=== PATIENT | male | born 1965 | race Caucasian/White ===

== ENCOUNTER 2021-11-08 18:00 | Inpatient (IN) | payer MEDICAID ==
[~2021-11-08] VITALS: Ht 175.3 cm; Wt 116.8 kg
[~2021-11-08 18:00] MED LIST: ALBU8.5H17 IH; ASPI-1265 PO; GEMF600T89 PO; HYDR-4383 PO; LISI20TA28 PO; LOVA20TA2 PO; METH4TAB3 PO; METO50TA17 PO; OMEP20CA15 PO
[2021-11-08] MEDS ORDERED: ibuprofen tablet 400 MG TABLET PO ONE (19:40)
[2021-11-08 19:51] LABS: BASOPHILS # (AUTO) 0.1 X10'3 (0-0.2); BASOPHILS % (AUTO) 0.3 % (0-1); EOSINOPHILS % (AUTO) 0 % (0-6); HEMATOCRIT 49.7 % (42.0-52.0); HEMOGLOBIN 17.1 g/dl (14.0-17.9); MEAN CORPUSCULAR HEMOGLOBIN 30.7 PG (27.0-31.0); MEAN CORPUSCULAR HGB CONC 34.3 g/dL (33.0-36.5); MEAN CORPUSCULAR VOLUME 89.6 FL (78-98); MEAN PLATELET VOLUME 9.5 FL (7.4-10.4); MONOCYTES # (AUTO) 1.2 X10'3 (0-0.9); MONOCYTES % (AUTO) 6.7 % (2-12); NEUTROPHILS # (AUTO) 15.2 X10'3 (1.8-7.7); PLATELET COUNT 206 X10'3 (140-440); RED BLOOD COUNT 5.55 X10'6 (4.70-6.10); RED CELL DISTRIBUTION WIDTH 13.6 % (11.5-14.5); WHITE BLOOD COUNT 17.5 X10'3 (4.5-11.0)
[2021-11-08 20:05] LABS: ALANINE AMINOTRANSFERASE 23 U/L (12-78); ALBUMIN 3.7 G/DL (3.4-5.0); ALBUMIN/GLOBULIN RATIO 0.8 (1.1-1.5); ALKALINE PHOSPHATASE 64 IU/L (46-116); ANION GAP 12 (8-16); ASPARTATE AMINO TRANSFERASE 16 U/L (10-37); BLOOD UREA NITROGEN 15 MG/DL (7-18); BUN/CREATININE RATIO 13.5 (5.4-32.0); CALCIUM 9.2 MG/DL (8.5-10.1); CHLORIDE 97 MMOL/L (99-107); CREATININE 1.11 MG/DL (0.60-1.10); GLUCOSE 96 MG/DL (70-104); POTASSIUM 4.2 MMOL/L (3.5-5.1); SODIUM 133 MMOL/L (135-145); TOTAL CARBON DIOXIDE 24.5 MMOL/L (24-32); TOTAL PROTEIN 8.4 G/DL (6.4-8.2); eGFR 68 ML/MIN
[2021-11-08 22:14] LABS: CLARITY,URINE CLEAR (Clear); COLOR,URINE YELLOW (Yellow); GLUCOSE, URINE NEGATIVE (Neg); KETONES,URINE 15 mg/dl (Neg); LEUKOCYTE ESTERASE ,URINE NEGATIVE (Neg); NITRITES, URINE NEGATIVE (Neg); OCCULT BLOOD,URINE TRACE-INTACT (Neg); PROTEIN,URINE TRACE mg/dl (Neg)
[2021-11-08 22:20] LABS: UA COLLECTION TYPE CLN CATCH MIDSTREAM
[2021-11-08] MEDS ORDERED: normal saline 1000ml 1,000 ML IV ONE (22:20)
[2021-11-08 22:21] LABS: BACTERIA,URINE FEW /HPF (Neg); RBC,URINE 0-2 /HPF (0-2); SQUAMOUS EPITHELIAL CELL,UR FEW /LPF (FEW); WBC,URINE NONE SEEN /HPF (0-4)
[2021-11-08] MEDS ORDERED: morphine 4 MG/ML inj SYRINge IV ONE (22:55)
[2021-11-08] MEDS ORDERED: ondansetron/PF 4mg/2ml inj IV ONE (22:55)
[2021-11-08] MEDS ORDERED: piperacillin/tazo 3.375gm/50ml 50 ML IV ONE (22:55)
[2021-11-09] MEDS ORDERED: bisacodyl 10mg suppository rectal RC PRN (01:00)
[2021-11-09] MEDS ORDERED: magnesium hydroxide 30ml (MOM) UD suspension PO PRN (01:00)
[2021-11-09] MEDS ORDERED: diphenhydrAMINE 25mg capsule PO PRN (01:00)
[2021-11-09] MEDS ORDERED: ondansetron 4mg rapidly disintigrating tab PO PRN (01:00)
[2021-11-09] MEDS ORDERED: acetaminophen 325mg tablet PO PRN ×2 (01:00)
[2021-11-09] MEDS ORDERED: ipratropium/albuterol 3ml nebule NEB PRN (01:00)
[2021-11-09] MEDS ORDERED: diphenhydrAMINE 50 mg/ml inj IV PRN (01:00)
[2021-11-09] MEDS ORDERED: HYDROcodone/acetaminophen 5mg/325mg tablet PO PRN (01:00)
[2021-11-09] MEDS ORDERED: HYDROcodone/acetaminophen 10/325mg tab PO PRN (01:00)
[2021-11-09] MEDS ORDERED: ondansetron/PF 4mg/2ml inj IV PRN (01:00)
[2021-11-09] MEDS ORDERED: morphine 2 MG/ML inj. syringe IV PRN ×2 (01:00)
[2021-11-09] MEDS ORDERED: acetaminophen 650mg rectal suppository RC PRN (01:00)
[2021-11-09] MEDS ORDERED: HYDROmorphone inj. 0.5 MG/0.5 ML DISP.SYRIN IV PRN (01:00)
[2021-11-09] MEDS ORDERED: mag hydrox/Alum hydrox/simeth 30ml oral suspension PO PRN (01:00)
[2021-11-09 01:33] LABS: CREATINE KINASE 460 U/L (39-308); LIPASE < 50 U/L (73-393); MAGNESIUM 2.3 MG/DL (1.5-2.4); PHOSPHORUS 2.7 MG/DL (2.3-4.5)
[2021-11-09 01:43] LABS: HEMOGLOBIN A1C 5.5 % (4.5-6.2)
[2021-11-09 01:51] LABS: APTT 34 SECONDS (22-32)
[2021-11-09] MEDS: normal saline 1000ml 1,000 ML IV SCH ×3 (02:54→21:00)
--- NOTE | 2021-11-09 03:02 | NUR ---
PT HAS BEEN UP TO THE RESTROOM TWICE SINCE BEING MOVED TO ER BED 15 AT APPROX 2300
--- NOTE | 2021-11-09 05:46 | NUR ---
RN ASSUMED CARE OF PATIENT. PT MOVED FROM BED 15 TO BED 11
[2021-11-09 06:37] LABS: URINE AMPHETAMINE SCREEN NEGATIVE (Neg); URINE BARBITUATE SCREEN NEGATIVE (Neg); URINE BENZODIAZEPINES SCREEN NEGATIVE (Neg); URINE CANNABINOID SCREEN NEGATIVE (Neg); URINE COCAINE SCREEN NEGATIVE (Neg); URINE METHADONE SCREEN NEGATIVE (Neg); URINE OPIATE SCREEN NEGATIVE (Neg); URINE PHENCYCLIDINE SCREEN NEGATIVE (Neg)
[2021-11-09 08:00] LABS: BASOPHILS % (AUTO) 0.2 % (0-1); EOSINOPHILS % (AUTO) 0 % (0-6); HEMOGLOBIN 17.3 g/dl (14.0-17.9); LYMPHOCYTES # (AUTO) 0.8 X10'3 (1.1-4.8); LYMPHOCYTES % (AUTO) 5.3 % (21-51); MEAN CORPUSCULAR HEMOGLOBIN 30.9 PG (27.0-31.0); MEAN CORPUSCULAR HGB CONC 33.9 g/dL (33.0-36.5); MEAN CORPUSCULAR VOLUME 91.2 FL (78-98); MEAN PLATELET VOLUME 10.6 FL (7.4-10.4); MONOCYTES % (AUTO) 6.5 % (2-12); NEUTROPHILS # (AUTO) 13.3 X10'3 (1.8-7.7); PLATELET COUNT 203 X10'3 (140-440); RED BLOOD COUNT 5.59 X10'6 (4.70-6.10); WHITE BLOOD COUNT 15.2 X10'3 (4.5-11.0)
[2021-11-09] MEDS ORDERED: methylPREDNISolone sod succ 125mg/2ml vial IV SCH (08:00)
[2021-11-09] MEDS ORDERED: CefTRIAXone/D5W-Rocephin 1gm 50 ML IV SCH (08:00)
[2021-11-09] MEDS ORDERED: azithromycin 250mg tablet PO SCH (08:00)
[2021-11-09 08:09] LABS: ALANINE AMINOTRANSFERASE 23 U/L (12-78); ALBUMIN 3.5 G/DL (3.4-5.0); ALBUMIN/GLOBULIN RATIO 0.7 (1.1-1.5); ALKALINE PHOSPHATASE 63 IU/L (46-116); ANION GAP 12 (8-16); ASPARTATE AMINO TRANSFERASE 21 U/L (10-37); BLOOD UREA NITROGEN 15 MG/DL (7-18); BUN/CREATININE RATIO 15.2 (5.4-32.0); CALCIUM 9.3 MG/DL (8.5-10.1); CHLORIDE 99 MMOL/L (99-107); CREATININE 0.99 MG/DL (0.60-1.10); GLUCOSE 91 MG/DL (70-104); POTASSIUM 3.8 MMOL/L (3.5-5.1); SODIUM 133 MMOL/L (135-145); TOTAL CARBON DIOXIDE 21.8 MMOL/L (24-32); TOTAL PROTEIN 8.4 G/DL (6.4-8.2); eGFR 78 ML/MIN
[2021-11-09] MEDS: metoprolol tartrate 50mg tablet PO SCH ×2 (08:43→19:47)
[2021-11-09] MEDS: docusate sod 100mg capsule PO SCH ×2 (08:43→19:47)
[2021-11-09] MEDS: heparin, porcine 5000 units/ml vial SQ SCH ×2 (09:00→19:45)
[2021-11-09] MEDS: piperacillin/tazo 4.5gm/100ml 100 ML IV SCH ×2 (09:15→16:01)
--- NOTE | 2021-11-09 10:15 | NUR ---
Report given to YASMIN Jacobson RN will be coming to ER to take pt to PAS unit.
[2021-11-09 10:45] VITALS: BP 160/95
--- NOTE | 2021-11-09 10:45 | NUR ---
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 TOOK A SET OF VITALS. CHECKED HIS EMAR FOR MEDS DUE, AND ORDERED HIM A TRAY. PATIENT STABLE AND RESTING.
[2021-11-09] MEDS ORDERED: AMLO-708 PO (13:07)
[2021-11-09] MEDS ORDERED: VALS320T17 PO (13:07)
[2021-11-09] MEDS ORDERED: HYDR12.55 PO (13:08)
--- NOTE | 2021-11-09 13:09 | NUR ---
REVIEWED MED REC WITH PATIENT. POOR HISTORIAN. VAGUE ON THE LAST DATES FOR HIS MEDICATION.
[2021-11-09 13:40] VITALS: BP 151/76
--- NOTE | 2021-11-09 13:40 | NUR ---
Assumed care of pt. Pt awake and alert. VSS. Pt denied any discomfort except for ROBERTS. Call light in reach.
[2021-11-09] MEDS ORDERED: LISI40TA13 PO (16:43)
[2021-11-09] MEDS ORDERED: ASPI-611 PO (16:43)
[2021-11-09 18:00] VITALS: BP 131/73
--- NOTE | 2021-11-09 18:40 | NUR ---
Patient in room ORTHO 4012. I have received report from PAULA HOFFMAN and had the opportunity to ask questions and assume patient care.
[2021-11-09] MEDS: methylPREDNISolone sod succ 125mg/2ml vial IV SCH (19:44)
[2021-11-09] MEDS ORDERED: temazepam 15mg capsule PO PRN (21:00)
[2021-11-09 22:00] VITALS: BP 153/89
[2021-11-10] MEDS: piperacillin/tazo 4.5gm/100ml 100 ML IV SCH ×2 (00:47→07:51)
[2021-11-10] MEDS: normal saline 1000ml 1,000 ML IV SCH (04:56)
[2021-11-10 05:56] LABS: BASOPHILS % (AUTO) 0.1 % (0-1); EOSINOPHILS % (AUTO) 0 % (0-6); HEMATOCRIT 45.1 % (42.0-52.0); LYMPHOCYTES # (AUTO) 0.7 X10'3 (1.1-4.8); LYMPHOCYTES % (AUTO) 3.8 % (21-51); MEAN CORPUSCULAR HGB CONC 33.3 g/dL (33.0-36.5); MEAN CORPUSCULAR VOLUME 90.1 FL (78-98); MEAN PLATELET VOLUME 10.1 FL (7.4-10.4); MONOCYTES # (AUTO) 0.7 X10'3 (0-0.9); MONOCYTES % (AUTO) 3.8 % (2-12); NEUTROPHILS # (AUTO) 15.8 X10'3 (1.8-7.7); NEUTROPHILS % (AUTO) 92.3 % (42-75); PLATELET COUNT 198 X10'3 (140-440); RED BLOOD COUNT 5.01 X10'6 (4.70-6.10); RED CELL DISTRIBUTION WIDTH 13.6 % (11.5-14.5); WHITE BLOOD COUNT 17.1 X10'3 (4.5-11.0)
[2021-11-10 06:00] VITALS: BP 150/91
[2021-11-10 06:19] LABS: ALANINE AMINOTRANSFERASE 21 U/L (12-78); ALBUMIN 2.6 G/DL (3.4-5.0); ALBUMIN/GLOBULIN RATIO 0.6 (1.1-1.5); ALKALINE PHOSPHATASE 50 IU/L (46-116); ANION GAP 9 (8-16); ASPARTATE AMINO TRANSFERASE 13 U/L (10-37); BILIRUBIN,TOTAL 0.5 MG/DL (0.1-1.0); BLOOD UREA NITROGEN 26 MG/DL (7-18); BUN/CREATININE RATIO 28.6 (5.4-32.0); CALCIUM 8.9 MG/DL (8.5-10.1); CHLORIDE 105 MMOL/L (99-107); CHOL/HDL RATIO 5.1 (0.00-4.99); CHOLESTEROL 143 MG/DL (0-200); CREATININE 0.91 MG/DL (0.60-1.10); GLUCOSE 158 MG/DL (70-104); HDL CHOLESTEROL 28 MG/DL (35-60); LDL CHOLESTEROL 93 MG/DL (50-100); POTASSIUM 4.1 MMOL/L (3.5-5.1); SODIUM 137 MMOL/L (135-145); TOTAL CARBON DIOXIDE 22.6 MMOL/L (24-32); TOTAL PROTEIN 6.9 G/DL (6.4-8.2); TRIGLYCERIDES 91 MG/DL (20-135); eGFR 86 ML/MIN
--- NOTE | 2021-11-10 06:30 | NUR ---
Problems reprioritized. Patient report given, questions answered & plan of care reviewed with ANA HOFFMAN.
--- NOTE | 2021-11-10 07:15 | NUR ---
Patient in room ORTHO 4012. I have received report from YASMIN Tan and had the opportunity to ask questions and assume patient care.
[2021-11-10 07:26] LABS: PLATELET ESTIMATE NORMAL; TOTAL CELLS COUNTED 100
[2021-11-10] MEDS: heparin, porcine 5000 units/ml vial SQ SCH (07:44)
[2021-11-10] MEDS: metoprolol tartrate 50mg tablet PO SCH (07:50)
[2021-11-10] MEDS: docusate sod 100mg capsule PO SCH (07:51)
[2021-11-10] MEDS ORDERED: aspirin 81mg, enteric-coated 1 TAB TABLET.DR PO SCH (08:00)
[2021-11-10] MEDS ORDERED: lisinopril 20mg tablet PO SCH (08:00)
[2021-11-10] MEDS ORDERED: losartan 50mg tablet PO SCH (08:00)
[2021-11-10] MEDS ORDERED: amLODIPine 5mg tablet PO SCH (08:00)
[2021-11-10] MEDS: methylPREDNISolone sod succ 125mg/2ml vial IV SCH (08:04)
[2021-11-10 10:00] VITALS: BP 157/88
[2021-11-10] MEDS ORDERED: AMOX-580 PO ×2 (11:39)
[2021-11-10] MEDS ORDERED: ONDA4TAB12 PO ×2 (11:39)
[2021-11-10] MEDS ORDERED: PRED20TA PO ×2 (11:39)
[2021-11-10] MEDS ORDERED: ATOR20TA66 PO ×2 (11:39)
--- NOTE | 2021-11-10 14:31 | NUR ---
Patient discharged at 1320 with instructions and verbalizing understanding of instructions in wheelchair accompanied by nursing staff and family member going home via private vehicle. All lines and tubes have been removed including PIV with cannula intact. Medications have been escripted to pharmacy and education has been provided and all questions have been answered. Patient will set up his own follow up appointment with his PCP. Patient is stable and appropriate for discharge.
--- NOTE | 2021-11-10 14:34 | NUR ---
Today we were off ratio and medication administration and patient care have been delayed.
--- NOTE | 2021-11-11 10:22 | NUR ---
medications called into jamari colin DR.
== END 2021-11-10 13:23 | disposition home or self-care (01) | DRG 244 ==
LOC: ER 18:01 → ED HOLD 23:47 → ORTHO 4S 11-09 13:40
PROVIDERS: ADMIT Family Medicine; ATTEND Family Medicine
DX: K57.32 Diverticulitis of large intestine without perforation or abscess without bleeding (principal); I50.33 Acute on chronic diastolic (congestive) heart failure; K80.12 Calculus of gallbladder with acute and chronic cholecystitis without obstruction; N17.9 Acute kidney failure, unspecified; E78.5 Hyperlipidemia, unspecified; K76.0 Fatty (change of) liver, not elsewhere classified; M62.82 Rhabdomyolysis; E87.1 Hypo-osmolality and hyponatremia; Z20.822 Contact with and (suspected) exposure to COVID-19; E86.0 Dehydration; G89.4 Chronic pain syndrome; K40.20 Bilateral inguinal hernia, without obstruction or gangrene, not specified as recurrent; J44.1 Chronic obstructive pulmonary disease with (acute) exacerbation; I13.0 Hypertensive heart and chronic kidney disease with heart failure and stage 1 through stage 4 chronic kidney disease, or unspecified chronic kidney disease; K21.9 Gastro-esophageal reflux disease without esophagitis; N18.9 Chronic kidney disease, unspecified; M54.50 Low back pain, unspecified; R82.4 Acetonuria; Z72.0 Tobacco use; Z83.3 Family history of diabetes mellitus; Z82.49 Family history of ischemic heart disease and other diseases of the circulatory system; Z79.899 Other long term (current) drug therapy; Z79.82 Long term (current) use of aspirin; Z71.6 Tobacco abuse counseling
CPT/HCPCS: 36415; 71045; 74176; 76700; 80053; 80061; 80305; 81001; 82550; 83036; 83605; 83690; 83735; 83880; 84100; 84443; 85007; 85025; 85379; 85610; 85730; 87040; 87502; 87503; 87635; 94760; 96360; 96361; 99285; C9803; G0378; J1644; J2543; J2930; J7030

== ENCOUNTER 2021-11-13 11:35 | Inpatient (IN) | payer MEDICAID ==
[~2021-11-13] VITALS: Ht 180.3 cm; Wt 117.3 kg
[~2021-11-13 11:35] MED LIST changes: -ALBU8.5H17 IH; +AMLO-708 PO; +AMOX-580 PO; -ASPI-1265 PO; +ASPI-611 PO; +ATOR20TA66 PO; -GEMF600T89 PO; -HYDR-4383 PO; -LISI20TA28 PO; +LISI40TA13 PO; -LOVA20TA2 PO; -METH4TAB3 PO; -METO50TA17 PO; -OMEP20CA15 PO; +ONDA4TAB12 PO; +PRED20TA PO; +VALS320T17 PO
[2021-11-13 13:24] LABS: BASOPHILS % (AUTO) 0.2 % (0-1); EOSINOPHILS % (AUTO) 0 % (0-6); HEMATOCRIT 43.6 % (42.0-52.0); HEMOGLOBIN 14.9 g/dl (14.0-17.9); LYMPHOCYTES # (AUTO) 0.4 X10'3 (1.1-4.8); MEAN CORPUSCULAR HEMOGLOBIN 30.5 PG (27.0-31.0); MEAN CORPUSCULAR HGB CONC 34.2 g/dL (33.0-36.5); MEAN PLATELET VOLUME 9.8 FL (7.4-10.4); MONOCYTES # (AUTO) 0.5 X10'3 (0-0.9); MONOCYTES % (AUTO) 3.9 % (2-12); NEUTROPHILS # (AUTO) 12.9 X10'3 (1.8-7.7); NEUTROPHILS % (AUTO) 92.9 % (42-75); PLATELET COUNT 270 X10'3 (140-440); RED CELL DISTRIBUTION WIDTH 14.1 % (11.5-14.5); WHITE BLOOD COUNT 13.9 X10'3 (4.5-11.0)
[2021-11-13 13:42] LABS: ALANINE AMINOTRANSFERASE 40 U/L (12-78); ALBUMIN 2.6 G/DL (3.4-5.0); ALBUMIN/GLOBULIN RATIO 0.5 (1.1-1.5); ALKALINE PHOSPHATASE 74 IU/L (46-116); ANION GAP 10 (8-16); ASPARTATE AMINO TRANSFERASE 15 U/L (10-37); BILIRUBIN,TOTAL 0.4 MG/DL (0.1-1.0); BLOOD UREA NITROGEN 16 MG/DL (7-18); CALCIUM 8.9 MG/DL (8.5-10.1); CHLORIDE 103 MMOL/L (99-107); GLUCOSE 150 MG/DL (70-104); POTASSIUM 3.8 MMOL/L (3.5-5.1); SODIUM 135 MMOL/L (135-145); TOTAL PROTEIN 7.4 G/DL (6.4-8.2); eGFR > 90 ML/MIN
[2021-11-13] MEDS ORDERED: levoFLOXACIN-Levaquin 750MG/D5 150 ML IV STA (16:46)
[2021-11-13] MEDS ORDERED: vancomycin/NS 1 GM ADD-VANTAGE 250 ML X 1 DOSE IV ONE (17:10)
[2021-11-13] MEDS ORDERED: ondansetron/PF 4mg/2ml inj IV PRN (17:25)
[2021-11-13] MEDS ORDERED: HYDROmorphone/PF 0.2 MG/ML SYRINGE IV PRN (17:25)
[2021-11-13] MEDS ORDERED: magnesium Cl slow-release 64mg tablet PO PRN (17:25)
[2021-11-13] MEDS ORDERED: magnesium hydroxide 30ml (MOM) UD suspension PO PRN (17:25)
[2021-11-13] MEDS ORDERED: POTASSIUM BICARB 20meq eff tab 20 MEQ TABLET.EFF PO PRN ×2 (17:25)
[2021-11-13] MEDS ORDERED: magnesium 2GM in 50ml NS 50 ML IV PRN (17:25)
[2021-11-13] MEDS ORDERED: acetaminophen 325mg tablet PO PRN (17:25)
[2021-11-13] MEDS ORDERED: HYDROcodone/acetaminophen 10/325mg tab PO PRN (17:25)
[2021-11-13] MEDS ORDERED: mag hydrox/Alum hydrox/simeth 30ml oral suspension PO PRN (17:25)
[2021-11-13] MEDS ORDERED: HYDROcodone/acetaminophen 5mg/325mg tablet PO PRN (17:25)
[2021-11-13] MEDS ORDERED: bisacodyl 10mg suppository rectal RC PRN (17:25)
[2021-11-13] MEDS ORDERED: HYDROmorphone inj. 0.5 MG/0.5 ML DISP.SYRIN IV PRN (17:25)
[2021-11-13] MEDS ORDERED: acetaminophen 650mg rectal suppository RC PRN (17:25)
[2021-11-13] MEDS ORDERED: magnesium 4gm in 100ml NS 100 ML IV PRN (17:25)
[2021-11-13] MEDS ORDERED: ondansetron 4mg rapidly disintigrating tab PO PRN (17:25)
[2021-11-13] MEDS ORDERED: potassium CL 10mEq/100ml bag 100 ML IV PRN (17:25)
--- NOTE | 2021-11-13 17:41 | NUR ---
dr. agee at bedside.
[2021-11-13] MEDS: normal saline 1000ml 1,000 ML IV SCH ×2 (18:28)
[2021-11-13] MEDS: K and/or MAG REPLACEMENT MC SCH (18:44)
[2021-11-13] MEDS ORDERED: PRED20TA PO (18:55)
[2021-11-13] MEDS ORDERED: ONDA4TAB12 PO (18:55)
[2021-11-13] MEDS ORDERED: ATOR20TA66 PO (18:55)
[2021-11-13] MEDS ORDERED: AMOX-318 PO (18:55)
[2021-11-13] MEDS: docusate sod 100mg capsule PO SCH (19:12)
[2021-11-13] MEDS ORDERED: cefepime 2g/NS 100ml ADVANTAGE 100 ML IV SCH (20:00)
[2021-11-13] MEDS: cefepime 1GM/NS ADD-VANTAGE 100 ML IV SCH (20:12)
[2021-11-13] MEDS ORDERED: temazepam 15mg capsule PO PRN (21:00)
[2021-11-13] MEDS ORDERED: VANCOMYCIN 750MG IV in NS 250 ML IV ONE (23:30)
[2021-11-14] VITALS (9 sets, daily range): BP systolic 127–163; BP diastolic 54–99
[2021-11-14] MEDS: acetaminophen 325mg tablet PO PRN ×2 (01:55→19:46)
[2021-11-14 02:15] LABS: CLARITY,URINE CLEAR (Clear); COLOR,URINE YELLOW (Yellow); GLUCOSE, URINE NEGATIVE (Neg); KETONES,URINE NEGATIVE (Neg); LEUKOCYTE ESTERASE ,URINE NEGATIVE (Neg); NITRITES, URINE NEGATIVE (Neg); OCCULT BLOOD,URINE NEGATIVE (Neg); PH,URINE 6.5 (4.8-8.0); PROTEIN,URINE TRACE mg/dl (Neg)
[2021-11-14 02:21] LABS: UA COLLECTION TYPE URINAL
[2021-11-14 02:23] LABS: BACTERIA,URINE NONE SEEN /HPF (Neg); RBC,URINE 0-2 /HPF (0-2); SQUAMOUS EPITHELIAL CELL,UR NONE SEEN /LPF (FEW); WBC,URINE NONE SEEN /HPF (0-4)
[2021-11-14] MEDS ORDERED: hydrALAZINE 20mg/ml inj. IV PRN (02:35)
[2021-11-14] MEDS: normal saline 1000ml 1,000 ML IV SCH ×6 (03:25→19:26)
[2021-11-14] MEDS: cefepime 1GM/NS ADD-VANTAGE 100 ML IV SCH ×3 (04:28→19:35)
--- NOTE | 2021-11-14 06:00 | NUR ---
Patient in room ORTHO 4021. I have received report from Krysten HOFFMAN and had the opportunity to ask questions and assume patient care.
[2021-11-14 06:26] LABS: BASOPHILS % (AUTO) 0.3 % (0-1); EOSINOPHILS % (AUTO) 0.1 % (0-6); HEMATOCRIT 40.1 % (42.0-52.0); HEMOGLOBIN 13.6 g/dl (14.0-17.9); LYMPHOCYTES # (AUTO) 1.2 X10'3 (1.1-4.8); LYMPHOCYTES % (AUTO) 10.9 % (21-51); MEAN CORPUSCULAR HEMOGLOBIN 30.3 PG (27.0-31.0); MEAN CORPUSCULAR VOLUME 89.1 FL (78-98); MEAN PLATELET VOLUME 9.6 FL (7.4-10.4); MONOCYTES # (AUTO) 0.7 X10'3 (0-0.9); MONOCYTES % (AUTO) 6.5 % (2-12); NEUTROPHILS # (AUTO) 9.4 X10'3 (1.8-7.7); NEUTROPHILS % (AUTO) 82.2 % (42-75); PLATELET COUNT 265 X10'3 (140-440); RED CELL DISTRIBUTION WIDTH 14.2 % (11.5-14.5); WHITE BLOOD COUNT 11.5 X10'3 (4.5-11.0)
[2021-11-14 06:45] LABS: ALANINE AMINOTRANSFERASE 26 U/L (12-78); ALBUMIN/GLOBULIN RATIO 0.4 (1.1-1.5); ALKALINE PHOSPHATASE 65 IU/L (46-116); ANION GAP 9 (8-16); ASPARTATE AMINO TRANSFERASE 21 U/L (10-37); BILIRUBIN,TOTAL 0.5 MG/DL (0.1-1.0); BLOOD UREA NITROGEN 17 MG/DL (7-18); BUN/CREATININE RATIO 18.5 (5.4-32.0); CALCIUM 8.1 MG/DL (8.5-10.1); CHLORIDE 101 MMOL/L (99-107); CREATININE 0.92 MG/DL (0.60-1.10); GLUCOSE 101 MG/DL (70-104); MAGNESIUM 1.7 MG/DL (1.5-2.4); POTASSIUM 3.5 MMOL/L (3.5-5.1); SODIUM 133 MMOL/L (135-145); TOTAL CARBON DIOXIDE 22.6 MMOL/L (24-32); TOTAL PROTEIN 6.5 G/DL (6.4-8.2); eGFR 85 ML/MIN
[2021-11-14] MEDS: K and/or MAG REPLACEMENT MC SCH ×2 (08:00→18:34)
[2021-11-14] MEDS: docusate sod 100mg capsule PO SCH ×2 (08:00→19:36)
[2021-11-14 08:13] LABS: PLATELET ESTIMATE NORMAL; TOTAL CELLS COUNTED 100
[2021-11-14] MEDS: levoFLOXACIN-Levaquin 750MG/D5 150 ML IV SCH (08:50)
[2021-11-14] MEDS ORDERED: vancomycin/NS 1 GM ADD-VANTAGE 250 ML X 1 DOSE IV SCH (10:00)
[2021-11-14] MEDS: nicotine 14mg patch - 24hr TD SCH (12:05)
[2021-11-14] MEDS ORDERED: ipratropium/albuterol 3ml nebule NEB PRN (12:05)
--- NOTE | 2021-11-14 12:18 | NUR ---
Paged respiratory for RT eval and treat.
[2021-11-14] MEDS ORDERED: aspirin 81mg tab.chew PO SCH (13:00)
[2021-11-14] MEDS: VANCOmycin 1250MG/NS 250ml Bag 250 ML IV SCH (13:37)
[2021-11-14] MEDS: ipratropium/albuterol 3ml nebule NEB SCH ×3 (16:03→23:00)
--- NOTE | 2021-11-14 18:28 | NUR ---
Problems reprioritized. Patient report given, questions answered & plan of care reviewed with Krysten HOFFMAN.
[2021-11-14] MEDS: guaiFENesin/codeine phos 10ml UD oral syrup PO PRN (19:35)
[2021-11-15] MEDS: guaiFENesin/codeine phos 10ml UD oral syrup PO PRN ×2 (00:53→20:00)
[2021-11-15] MEDS: VANCOmycin 1250MG/NS 250ml Bag 250 ML IV SCH (00:55)
[2021-11-15] MEDS: cefepime 1GM/NS ADD-VANTAGE 100 ML IV SCH ×3 (04:32→20:00)
[2021-11-15 06:00] VITALS: BP 153/86
[2021-11-15 06:08] LABS: BASOPHILS % (AUTO) 0.4 % (0-1); EOSINOPHILS # (AUTO) 0.2 X10'3 (0-0.9); EOSINOPHILS % (AUTO) 2.6 % (0-6); HEMATOCRIT 40.7 % (42.0-52.0); HEMOGLOBIN 13.9 g/dl (14.0-17.9); LYMPHOCYTES # (AUTO) 1.3 X10'3 (1.1-4.8); LYMPHOCYTES % (AUTO) 15.9 % (21-51); MEAN CORPUSCULAR HEMOGLOBIN 30.8 PG (27.0-31.0); MEAN CORPUSCULAR HGB CONC 34.2 g/dL (33.0-36.5); MEAN CORPUSCULAR VOLUME 90.1 FL (78-98); MEAN PLATELET VOLUME 8.9 FL (7.4-10.4); MONOCYTES # (AUTO) 0.8 X10'3 (0-0.9); MONOCYTES % (AUTO) 9.7 % (2-12); NEUTROPHILS # (AUTO) 5.6 X10'3 (1.8-7.7); NEUTROPHILS % (AUTO) 71.4 % (42-75); PLATELET COUNT 278 X10'3 (140-440); RED BLOOD COUNT 4.52 X10'6 (4.70-6.10); RED CELL DISTRIBUTION WIDTH 14.3 % (11.5-14.5); WHITE BLOOD COUNT 7.9 X10'3 (4.5-11.0)
[2021-11-15 06:18] LABS: ALANINE AMINOTRANSFERASE 49 U/L (12-78); ALBUMIN/GLOBULIN RATIO 0.4 (1.1-1.5); ALKALINE PHOSPHATASE 66 IU/L (46-116); ANION GAP 13 (8-16); ASPARTATE AMINO TRANSFERASE 42 U/L (10-37); BILIRUBIN,TOTAL 0.5 MG/DL (0.1-1.0); BLOOD UREA NITROGEN 12 MG/DL (7-18); BUN/CREATININE RATIO 16.2 (5.4-32.0); CALCIUM 8.2 MG/DL (8.5-10.1); CHLORIDE 101 MMOL/L (99-107); CREATININE 0.74 MG/DL (0.60-1.10); GLUCOSE 99 MG/DL (70-104); MAGNESIUM 1.9 MG/DL (1.5-2.4); POTASSIUM 3.5 MMOL/L (3.5-5.1); SODIUM 136 MMOL/L (135-145); TOTAL CARBON DIOXIDE 21.7 MMOL/L (24-32); TOTAL PROTEIN 6.5 G/DL (6.4-8.2); eGFR > 90 ML/MIN
--- NOTE | 2021-11-15 06:19 | NUR ---
Problems reprioritized. Patient report given, questions answered & plan of care reviewed with YASMIN Yost.
[2021-11-15] MEDS: levoFLOXACIN-Levaquin 750MG/D5 150 ML IV SCH (07:13)
[2021-11-15] MEDS: lisinopril 20mg tablet PO SCH (07:17)
[2021-11-15] MEDS: losartan 50mg tablet PO SCH (07:17)
[2021-11-15] MEDS: amLODIPine 5mg tablet PO SCH (07:18)
[2021-11-15] MEDS: aspirin 81mg tab.chew PO SCH (07:18)
[2021-11-15] MEDS: docusate sod 100mg capsule PO SCH ×2 (07:19→20:00)
[2021-11-15] MEDS: nicotine 14mg patch - 24hr TD SCH (07:19)
[2021-11-15] MEDS: K and/or MAG REPLACEMENT MC SCH ×2 (07:25→19:11)
[2021-11-15] MEDS: atorvastatin 20mg tablet PO SCH (07:26)
[2021-11-15] MEDS: ipratropium/albuterol 3ml nebule NEB SCH ×4 (07:50→20:44)
[2021-11-15 10:00] VITALS: BP 139/75
--- NOTE | 2021-11-15 11:56 | NUR ---
notified patient of ct scan order. need 20g IV - will attempt to start IV. pt and at bedside, aware of NPO status until CTA complete. sign on door. talked to silver designer
[2021-11-15] MEDS ORDERED: VANCOMYCIN LEVEL IV ONE (12:30)
[2021-11-15] MEDS: normal saline 1000ml 1,000 ML IV SCH (12:34)
[2021-11-15] MEDS ORDERED: iohexol 350MG/ML 100ml bottle IV ONE (13:48)
[2021-11-15] MEDS: vancomycin 1,750 MG in NS 350ml IV soln IV SCH (14:51)
[2021-11-15 18:00] VITALS: BP 162/83
--- NOTE | 2021-11-15 18:23 | NUR ---
reported to days. noted pt CT scan negative for PE
--- NOTE | 2021-11-15 18:26 | NUR ---
Patient in room ORTHO 4021. I have received report from YASMIN Yost and had the opportunity to ask questions and assume patient care.
[2021-11-15 18:55] VITALS: BP 150/76
[2021-11-15 22:00] VITALS: BP 120/64
[2021-11-16] MEDS: ipratropium/albuterol 3ml nebule NEB SCH ×3 (00:24→11:26)
[2021-11-16] MEDS: vancomycin 1,750 MG in NS 350ml IV soln IV SCH (02:00)
[2021-11-16] MEDS: cefepime 1GM/NS ADD-VANTAGE 100 ML IV SCH ×2 (04:18→12:30)
[2021-11-16 06:00] VITALS: BP 154/88
--- NOTE | 2021-11-16 06:26 | NUR ---
Problems reprioritized. Patient report given, questions answered & plan of care reviewed with YASMIN Mcqueen.
[2021-11-16 06:35] LABS: BASOPHILS % (AUTO) 0.4 % (0-1); EOSINOPHILS # (AUTO) 0.2 X10'3 (0-0.9); EOSINOPHILS % (AUTO) 3.2 % (0-6); HEMATOCRIT 40.2 % (42.0-52.0); HEMOGLOBIN 13.8 g/dl (14.0-17.9); LYMPHOCYTES # (AUTO) 1.5 X10'3 (1.1-4.8); LYMPHOCYTES % (AUTO) 18.6 % (21-51); MEAN CORPUSCULAR HEMOGLOBIN 30.8 PG (27.0-31.0); MEAN CORPUSCULAR HGB CONC 34.4 g/dL (33.0-36.5); MEAN CORPUSCULAR VOLUME 89.5 FL (78-98); MEAN PLATELET VOLUME 8.5 FL (7.4-10.4); MONOCYTES # (AUTO) 0.8 X10'3 (0-0.9); MONOCYTES % (AUTO) 10.3 % (2-12); NEUTROPHILS # (AUTO) 5.3 X10'3 (1.8-7.7); NEUTROPHILS % (AUTO) 67.5 % (42-75); PLATELET COUNT 328 X10'3 (140-440); RED BLOOD COUNT 4.49 X10'6 (4.70-6.10); RED CELL DISTRIBUTION WIDTH 14.1 % (11.5-14.5); WHITE BLOOD COUNT 7.8 X10'3 (4.5-11.0)
[2021-11-16 06:41] LABS: ALANINE AMINOTRANSFERASE 142 U/L (12-78); ALBUMIN 2.1 G/DL (3.4-5.0); ALBUMIN/GLOBULIN RATIO 0.4 (1.1-1.5); ALKALINE PHOSPHATASE 93 IU/L (46-116); ANION GAP 11 (8-16); ASPARTATE AMINO TRANSFERASE 99 U/L (10-37); BILIRUBIN,TOTAL 0.6 MG/DL (0.1-1.0); BLOOD UREA NITROGEN 13 MG/DL (7-18); BUN/CREATININE RATIO 17.6 (5.4-32.0); CALCIUM 8.3 MG/DL (8.5-10.1); CHLORIDE 104 MMOL/L (99-107); CREATININE 0.74 MG/DL (0.60-1.10); GLUCOSE 97 MG/DL (70-104); MAGNESIUM 2.1 MG/DL (1.5-2.4); POTASSIUM 3.8 MMOL/L (3.5-5.1); SODIUM 138 MMOL/L (135-145); TOTAL CARBON DIOXIDE 23.5 MMOL/L (24-32); TOTAL PROTEIN 6.8 G/DL (6.4-8.2); eGFR > 90 ML/MIN
--- NOTE | 2021-11-16 06:57 | NUR ---
Patient in room ORTHO 4021. I have received report from Yaritza HOFFMAN and had the opportunity to ask questions and assume patient care.
[2021-11-16] MEDS: K and/or MAG REPLACEMENT MC SCH (08:00)
[2021-11-16] MEDS: docusate sod 100mg capsule PO SCH (08:00)
[2021-11-16] MEDS: nicotine 14mg patch - 24hr TD SCH (08:00)
[2021-11-16] MEDS: levoFLOXACIN-Levaquin 750MG/D5 150 ML IV SCH (09:11)
[2021-11-16] MEDS: atorvastatin 20mg tablet PO SCH (09:16)
[2021-11-16] MEDS: losartan 50mg tablet PO SCH (09:16)
[2021-11-16] MEDS: amLODIPine 5mg tablet PO SCH (09:17)
[2021-11-16] MEDS: lisinopril 20mg tablet PO SCH (09:18)
[2021-11-16] MEDS: aspirin 81mg tab.chew PO SCH (09:18)
[2021-11-16 11:00] VITALS: BP 146/78
[2021-11-16] MEDS ORDERED: NICO-631 TD (12:01)
[2021-11-16] MEDS ORDERED: LEVO750T46 PO (12:01)
--- NOTE | 2021-11-16 13:08 | NUR ---
Nutrition Consult "pt w/ diverticulitis wants low-residue diet info": Pt admit DX PNA hx diverticulitis recent prior admit 11/08 per EMR. Pt on low-residue diet this admit though reports has not had any GI discomfort since prior admit 11/[address]. Pt/SO seen by RD for written/verbal low fiber and high fiber diet eds w/ fiber content of foods list and RD contact information provided. RD reviewed long-term high fiber diet guidelines when not in acute inflammatory state and transition from low to high fiber diets. Pt reports is active and stays hydrated at work/home. RD encouraged pt to contact dietitian's office if further questions/concerns. Addendum: 11/16/21 at [address] Amended: Links added.
--- NOTE | 2021-11-16 14:25 | NUR ---
patient up and about walking in hallway. No c/o pain. Encouraged to use IS and Flutter valve with good effort. All Dc instructions given to patient following patient being seen by Dr bassett. DC home via private car with spouse in stable condition.
[2021-11-17] MEDS ORDERED: VANCOMYCIN LEVEL IV ONE (01:30)
== END 2021-11-16 14:05 | disposition home or self-care (01) | DRG 140 ==
LOC: ER 11:35 → ED HOLD 17:30 → EDBEDREQ 22:58 → ORTHO 4S 11-14 03:05
PROVIDERS: ADMIT Family Medicine; ATTEND Family Medicine
PROC: B32T1ZZ Computerized Tomography (CT Scan) of Left Pulmonary Artery using Low Osmolar Contrast (ICD-10-PCS; principal; 2021-11-15)
PROC: B3201ZZ Computerized Tomography (CT Scan) of Thoracic Aorta using Low Osmolar Contrast (ICD-10-PCS; 2021-11-15)
PROC: B32S1ZZ Computerized Tomography (CT Scan) of Right Pulmonary Artery using Low Osmolar Contrast (ICD-10-PCS; 2021-11-15)
DX: J44.0 Chronic obstructive pulmonary disease with (acute) lower respiratory infection (principal); J18.9 Pneumonia, unspecified organism; E78.5 Hyperlipidemia, unspecified; F17.210 Nicotine dependence, cigarettes, uncomplicated; Z20.822 Contact with and (suspected) exposure to COVID-19; K57.92 Diverticulitis of intestine, part unspecified, without perforation or abscess without bleeding; I10 Essential (primary) hypertension; G47.33 Obstructive sleep apnea (adult) (pediatric); G89.29 Other chronic pain; K80.20 Calculus of gallbladder without cholecystitis without obstruction; M54.9 Dorsalgia, unspecified; R91.1 Solitary pulmonary nodule; Z83.3 Family history of diabetes mellitus; Z82.49 Family history of ischemic heart disease and other diseases of the circulatory system; Z71.6 Tobacco abuse counseling
CPT/HCPCS: 36415; 71045; 71275; 80053; 80202; 81001; 83605; 83735; 84145; 84484; 85007; 85025; 87040; 87081; 87502; 87503; 87635; 93005; 94640; 94760; 99285; A6258; G0378; J0360; J0692; J1956; J3370; J3490; J7030; J7040; J7050; Q9967

== ENCOUNTER 2022-07-01 23:30 | Inpatient (IN) | payer MEDICAID ==
[~2022-07-01] VITALS: Ht 180.3 cm; Wt 107.1 kg
[~2022-07-01 23:30] MED LIST changes: -AMOX-580 PO; +NICO-631 TD; -PRED20TA PO
[2022-07-01 23:50] LABS: BASOPHILS # (AUTO) 0.1 X10'3 (0-0.2); EOSINOPHILS # (AUTO) 0.2 X10'3 (0-0.9); EOSINOPHILS % (AUTO) 2.2 % (0-6); HEMOGLOBIN 14.5 g/dl (14.0-17.9); LYMPHOCYTES # (AUTO) 2.8 X10'3 (1.1-4.8); LYMPHOCYTES % (AUTO) 25.4 % (21-51); MEAN CORPUSCULAR HGB CONC 33.7 g/dL (33.0-36.5); MEAN PLATELET VOLUME 9.4 FL (7.4-10.4); MONOCYTES # (AUTO) 1.1 X10'3 (0-0.9); MONOCYTES % (AUTO) 9.4 % (2-12); PLATELET COUNT 249 X10'3 (140-440); RED BLOOD COUNT 4.67 X10'6 (4.70-6.10); RED CELL DISTRIBUTION WIDTH 13.9 % (11.5-14.5); WHITE BLOOD COUNT 11.2 X10'3 (4.5-11.0)
[2022-07-01] MEDS ORDERED: heparin 10,000 units/1 ML INJ IV ONE (23:55)
[2022-07-01] MEDS ORDERED: heparin 10,000 units/1 ML INJ IV PRN (23:55)
[2022-07-01] MEDS ORDERED: heparin 25,000 UNIT/250ml bag 250 ML IV PRN (23:55)
[2022-07-02] VITALS (15 sets, daily range): BP systolic 124–163; BP diastolic 71–85
[2022-07-02] MEDS ORDERED: heparin 10,000 units/1 ML INJ IV PRN ×2 (00:05→00:06)
[2022-07-02] MEDS ORDERED: heparin 10,000 units/1 ML INJ IV ONE (00:10)
--- NOTE | 2022-07-02 00:11 | NUR ---
pt recieved 324 ASA and 1 nitro PLUG CUTTER
[2022-07-02 00:12] LABS: ALANINE AMINOTRANSFERASE 15 U/L (12-78); ALBUMIN 3.2 G/DL (3.4-5.0); ALBUMIN/GLOBULIN RATIO 0.9 (1.1-1.5); ALKALINE PHOSPHATASE 55 IU/L (46-116); ANION GAP 8 (8-16); ASPARTATE AMINO TRANSFERASE 14 U/L (10-37); BILIRUBIN,TOTAL 0.4 MG/DL (0.1-1.0); BLOOD UREA NITROGEN 19 MG/DL (7-18); BUN/CREATININE RATIO 24.4 (5.4-32.0); CALCIUM 8.8 MG/DL (8.5-10.1); CHLORIDE 107 MMOL/L (99-107); CREATININE 0.78 MG/DL (0.60-1.10); GLUCOSE 121 MG/DL (70-104); POTASSIUM 3.2 MMOL/L (3.5-5.1); SODIUM 139 MMOL/L (135-145); TOTAL CARBON DIOXIDE 24.4 MMOL/L (24-32); TOTAL PROTEIN 6.8 G/DL (6.4-8.2); eGFR > 90 ML/MIN
--- NOTE | 2022-07-02 00:17 | NUR ---
Pt on cardiac pad and undressed for labor training manager, placed on 2L n/c w/ heparin running.
[2022-07-02] MEDS ORDERED: LIDOcaine 1% 30ml preserv. free vial ONE (00:22)
[2022-07-02] MEDS ORDERED: verapamil 2.5 mg/ml inj IV ONE (00:22)
[2022-07-02] MEDS ORDERED: iohexol 350MG/ML 100ml bottle IV ONE (00:22)
[2022-07-02] MEDS ORDERED: nitroGLYCERIN-Tridil 50MG/D5W 0 ML IV ONE (00:22)
[2022-07-02] MEDS ORDERED: heparin 1,000unit/ml 10ml vial 10 ML ONE (00:22)
--- NOTE | 2022-07-02 00:31 | NUR ---
report given at bedside to cathead operator RN. Pt to cathead operator at this time.
[2022-07-02 00:34] LABS: APTT 29 SECONDS (22-32)
[2022-07-02] MEDS ORDERED: midazolam 1 mg/ML 2ml injection ONE (00:38)
[2022-07-02] MEDS ORDERED: fentaNYL/PF 50MCG/1 ML 2ML syringe ONE (00:39)
[2022-07-02] MEDS ORDERED: atropine 0.1mg/ml 10ml syringe ONE (00:40)
[2022-07-02] MEDS ORDERED: DOPamine 400mg/D5W 250ml 250 ML IV ONE (01:03)
[2022-07-02] MEDS ORDERED: ticagrelor 90mg tablet ONE (01:15)
[2022-07-02] MEDS ORDERED: HYDROcodone/acetaminophen 10/325mg tab PO PRN ×2 (02:55→04:20)
[2022-07-02] MEDS ORDERED: ondansetron/PF 4mg/2ml inj IV PRN ×2 (02:55→04:20)
[2022-07-02] MEDS ORDERED: OXAZEpam 15mg capsule PO PRN (02:55)
[2022-07-02] MEDS ORDERED: proCHLORperazine 10 MG/2 ml inj IV PRN (02:55)
[2022-07-02] MEDS: normal saline 1000ml 1,000 ML IV SCH ×3 (02:55→22:55)
[2022-07-02] MEDS ORDERED: HYDROcodone/acetaminophen 5mg/325mg tablet PO PRN ×2 (02:55→04:20)
[2022-07-02] MEDS ORDERED: DOPamine 400mg/D5W 250ml 250 ML IV PRN (03:00)
[2022-07-02] MEDS ORDERED: magnesium 4gm in 100ml NS 100 ML IV PRN (04:20)
[2022-07-02] MEDS ORDERED: PERFLUTREN PROTEIN-A MICROSPHR (Optison) 0.22 MG/ML 3ML VIAL IV ONE (04:20)
[2022-07-02] MEDS ORDERED: potassium Cl 40MEQ/1/2NS 520ml 520 ML IV PRN (04:20)
[2022-07-02] MEDS ORDERED: potassium Cl 20 mEq SR tablet PO PRN ×2 (04:20)
[2022-07-02] MEDS ORDERED: mag hydrox/Alum hydrox/simeth 30ml oral suspension PO PRN (04:20)
[2022-07-02] MEDS ORDERED: acetaminophen 325mg tablet PO PRN ×2 (04:20)
[2022-07-02 06:21] LABS: BASOPHILS % (AUTO) 0.4 % (0-1); EOSINOPHILS # (AUTO) 0.1 X10'3 (0-0.9); EOSINOPHILS % (AUTO) 0.5 % (0-6); HEMATOCRIT 45.4 % (42.0-52.0); HEMOGLOBIN 15.6 g/dl (14.0-17.9); LYMPHOCYTES # (AUTO) 1.7 X10'3 (1.1-4.8); LYMPHOCYTES % (AUTO) 15.5 % (21-51); MEAN CORPUSCULAR HEMOGLOBIN 31.5 PG (27.0-31.0); MEAN CORPUSCULAR HGB CONC 34.4 g/dL (33.0-36.5); MEAN CORPUSCULAR VOLUME 91.5 FL (78-98); MEAN PLATELET VOLUME 9.4 FL (7.4-10.4); MONOCYTES % (AUTO) 9.2 % (2-12); NEUTROPHILS # (AUTO) 8.1 X10'3 (1.8-7.7); NEUTROPHILS % (AUTO) 74.4 % (42-75); PLATELET COUNT 257 X10'3 (140-440); RED BLOOD COUNT 4.96 X10'6 (4.70-6.10); RED CELL DISTRIBUTION WIDTH 13.6 % (11.5-14.5); WHITE BLOOD COUNT 10.9 X10'3 (4.5-11.0)
[2022-07-02 06:24] LABS: CHOL/HDL RATIO 3.8 (0.00-4.99); CHOLESTEROL 146 MG/DL (0-200); HDL CHOLESTEROL 38 MG/DL (35-60); LDL CHOLESTEROL 87 MG/DL (50-100); TRIGLYCERIDES 133 MG/DL (20-135)
--- NOTE | 2022-07-02 07:39 | NUR ---
Patient in room PCU 3021. I have received report from YASMIN Mcdonnell and had the opportunity to ask questions and assume patient care.
[2022-07-02] MEDS: K and/or MAG REPLACEMENT MC SCH ×2 (08:00→19:01)
[2022-07-02] MEDS: aspirin 81mg, enteric-coated 1 TAB TABLET.DR PO SCH (08:22)
[2022-07-02] MEDS: docusate sod 100mg capsule PO SCH ×2 (08:22→19:16)
--- NOTE | 2022-07-02 10:33 | NUR ---
Paged Gisselle Ghosh NP regarding patient being on a dopamine gtt post cath. 3021. Mp Arellano. Patient on a Dopamine gtt post cath. Pressures are better and patient walking. Thank you.
--- NOTE | 2022-07-02 11:04 | NUR ---
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
--- NOTE | 2022-07-02 16:26 | NUR ---
Student documentation: I have reviewed and agree with all interventions, assessments performed and documented by Lizette student nurse.
--- NOTE | 2022-07-02 16:27 | NUR ---
Student Medication Administration: For this medication-pass time frame, all medication were reviewed, dispensed, administered and documented per hospital policy by allegra Bauer nurse.
--- NOTE | 2022-07-02 18:25 | NUR ---
Problems reprioritized. Patient report given, questions answered & plan of care reviewed with Liset, RN.
[2022-07-02] MEDS: ticagrelor 90mg tablet PO SCH (19:06)
[2022-07-02] MEDS: metoprolol tartrate 25mg tablet PO SCH (19:10)
[2022-07-02] MEDS ORDERED: atorvastatin 20mg tablet PO SCH (21:00)
--- NOTE | 2022-07-03 00:29 | NUR ---
Pt. is awake alert oriented able to talk about card cath procedure and stent placement . Right groin dressing dry and intact with small amt of reddish drainage noted. DP dpulse Addendum: 07/03/22 at 0036 by Naomi Clarke RN Pt. is awake alert oriented able to talk about card cath procedure and stent placement . Right groin dressing dry and intact with small amt of reddish drainage noted small amt of soft bruising noted mildly painful to touch. DP pulse palpable, No c/o chest pain. Monitor shows NSR. Pt. able to use urinal krystian clear urine. Peripheral iv intact. Plan for Home discharge tomorrow when medically cleared.
--- NOTE | 2022-07-03 04:00 | NUR ---
Had an isolated 8 beat run reperfusion arrhythmia bp 139/83 see chart. No c/o pain or discomfort. Pt. on continuous monitor had oral potassium replacement.
[2022-07-03 05:51] LABS: BASOPHILS # (AUTO) 0.1 X10'3 (0-0.2); BASOPHILS % (AUTO) 0.8 % (0-1); EOSINOPHILS # (AUTO) 0.2 X10'3 (0-0.9); EOSINOPHILS % (AUTO) 2.1 % (0-6); HEMATOCRIT 41.6 % (42.0-52.0); HEMOGLOBIN 14.3 g/dl (14.0-17.9); LYMPHOCYTES # (AUTO) 2.4 X10'3 (1.1-4.8); LYMPHOCYTES % (AUTO) 24.5 % (21-51); MEAN CORPUSCULAR HEMOGLOBIN 31.6 PG (27.0-31.0); MEAN CORPUSCULAR HGB CONC 34.3 g/dL (33.0-36.5); MEAN CORPUSCULAR VOLUME 92.2 FL (78-98); MONOCYTES # (AUTO) 0.9 X10'3 (0-0.9); MONOCYTES % (AUTO) 9.4 % (2-12); NEUTROPHILS # (AUTO) 6.3 X10'3 (1.8-7.7); NEUTROPHILS % (AUTO) 63.2 % (42-75); PLATELET COUNT 211 X10'3 (140-440); RED BLOOD COUNT 4.51 X10'6 (4.70-6.10); RED CELL DISTRIBUTION WIDTH 13.9 % (11.5-14.5)
[2022-07-03 06:00] VITALS: BP 156/85
[2022-07-03 06:07] LABS: ALANINE AMINOTRANSFERASE 19 U/L (12-78); ALBUMIN 2.8 G/DL (3.4-5.0); ALBUMIN/GLOBULIN RATIO 0.8 (1.1-1.5); ALKALINE PHOSPHATASE 50 IU/L (46-116); ANION GAP 7 (8-16); ASPARTATE AMINO TRANSFERASE 46 U/L (10-37); BILIRUBIN,TOTAL 0.6 MG/DL (0.1-1.0); BLOOD UREA NITROGEN 20 MG/DL (7-18); BUN/CREATININE RATIO 23.8 (5.4-32.0); CALCIUM 8.5 MG/DL (8.5-10.1); CHLORIDE 108 MMOL/L (99-107); CREATININE 0.84 MG/DL (0.60-1.10); GLUCOSE 89 MG/DL (70-104); POTASSIUM 4.3 MMOL/L (3.5-5.1); SODIUM 139 MMOL/L (135-145); TOTAL CARBON DIOXIDE 24.4 MMOL/L (24-32); TOTAL PROTEIN 6.3 G/DL (6.4-8.2); eGFR > 90 ML/MIN
--- NOTE | 2022-07-03 06:26 | NUR ---
Report received from Liset, RN
[2022-07-03] MEDS: docusate sod 100mg capsule PO SCH (08:00)
[2022-07-03] MEDS: K and/or MAG REPLACEMENT MC SCH (08:00)
[2022-07-03 08:15] VITALS: BP_SYST 156
[2022-07-03] MEDS: metoprolol tartrate 25mg tablet PO SCH (08:15)
[2022-07-03] MEDS: ticagrelor 90mg tablet PO SCH (08:15)
[2022-07-03] MEDS: aspirin 81mg, enteric-coated 1 TAB TABLET.DR PO SCH (08:16)
--- NOTE | 2022-07-03 08:23 | NUR ---
Rt femoral site is CDI. Pedal pulses present. Will CTM Addendum: 07/03/22 at 0824 by Monica Sands LVN, LVN Amended: Links added.
[2022-07-03] MEDS: normal saline 1000ml 1,000 ML IV SCH (09:16)
--- NOTE | 2022-07-03 09:58 | NUR ---
i reviewed program lead, physical assessment and i agree w/physical assessment
[2022-07-03] MEDS ORDERED: LOP25T PO (10:45)
[2022-07-03] MEDS ORDERED: TICA90TA PO (10:45)
[2022-07-03] MEDS ORDERED: ATOR40TA PO (10:45)
[2022-07-03] MEDS ORDERED: ASPI-611 PO (10:45)
--- NOTE | 2022-07-03 14:00 | NUR ---
pt d/c with instructions, understanding of instructions, and w/all belongings accompanied by fam member in wheelchair to private vehicle to go home and f/u w/pcp and precision lathe operator
== END 2022-07-03 13:52 | disposition home or self-care (01) | DRG 174 ==
LOC: ER 23:30 → PCU 3S 07-02 01:20 → UNDOADMIN 07-02 01:20 → PCU 3S 07-02 04:23
PROVIDERS: ADMIT Internal Medicine Interventional Cardiology; ATTEND Family Medicine
PROC: 4A023N7 Measurement of Cardiac Sampling and Pressure, Left Heart, Percutaneous Approach (ICD-10-PCS; principal; 2022-07-02)
PROC: 027034Z Dilation of Coronary Artery, One Artery with Drug-eluting Intraluminal Device, Percutaneous Approach (ICD-10-PCS; 2022-07-02)
PROC: B2111ZZ Fluoroscopy of Multiple Coronary Arteries using Low Osmolar Contrast (ICD-10-PCS; 2022-07-02)
PROC: B2151ZZ Fluoroscopy of Left Heart using Low Osmolar Contrast (ICD-10-PCS; 2022-07-02)
DX: I21.3 ST elevation (STEMI) myocardial infarction of unspecified site (principal); I95.9 Hypotension, unspecified; D72.829 Elevated white blood cell count, unspecified; E78.00 Pure hypercholesterolemia, unspecified; E87.6 Hypokalemia; G47.33 Obstructive sleep apnea (adult) (pediatric); G89.29 Other chronic pain; K21.9 Gastro-esophageal reflux disease without esophagitis; M54.9 Dorsalgia, unspecified; F17.210 Nicotine dependence, cigarettes, uncomplicated; I10 Essential (primary) hypertension; J44.9 Chronic obstructive pulmonary disease, unspecified; Z79.82 Long term (current) use of aspirin; Z79.899 Other long term (current) drug therapy; Z82.49 Family history of ischemic heart disease and other diseases of the circulatory system; Z83.3 Family history of diabetes mellitus; Z71.6 Tobacco abuse counseling
CPT/HCPCS: 36415; 71045; 80053; 80061; 83735; 83880; 84484; 85025; 85610; 85730; 86885; 86900; 86901; 87081; 93005; 93306; 93458; 96365; 96376; 99152; 99153; 99291; A6258; C1725; C1751; C1760; C1769; C1874; C9606; G0378; J0461; J1265; J1644; J2250; J3010; J3490; J7030; Q9967

== ENCOUNTER 2022-09-25 14:28 | Inpatient (IN) | payer MEDICAID ==
[~2022-09-25] VITALS: Ht 180.3 cm; Wt 104.5 kg
[~2022-09-25 14:28] MED LIST changes: +LOP25T PO; +TICA90TA PO; -VALS320T17 PO
--- NOTE | 2022-09-25 15:05 | NUR ---
RN ATTEMPTING TO GET IV AT THIS TIME.
[2022-09-25 15:14] LABS: BASOPHILS % (AUTO) 0.6 % (0-1); EOSINOPHILS # (AUTO) 0.1 X10'3 (0-0.9); EOSINOPHILS % (AUTO) 1.7 % (0-6); HEMATOCRIT 42.4 % (42.0-52.0); HEMOGLOBIN 14.7 g/dl (14.0-17.9); MEAN CORPUSCULAR HEMOGLOBIN 31.6 PG (27.0-31.0); MEAN CORPUSCULAR HGB CONC 34.6 g/dL (33.0-36.5); MEAN CORPUSCULAR VOLUME 91.2 FL (78-98); MEAN PLATELET VOLUME 8.8 FL (7.4-10.4); MONOCYTES # (AUTO) 0.7 X10'3 (0-0.9); MONOCYTES % (AUTO) 8.3 % (2-12); NEUTROPHILS # (AUTO) 5.3 X10'3 (1.8-7.7); NEUTROPHILS % (AUTO) 64.4 % (42-75); PLATELET COUNT 245 X10'3 (140-440); RED BLOOD COUNT 4.65 X10'6 (4.70-6.10); RED CELL DISTRIBUTION WIDTH 13.7 % (11.5-14.5); WHITE BLOOD COUNT 8.2 X10'3 (4.5-11.0)
[2022-09-25 15:23] LABS: ALANINE AMINOTRANSFERASE 15 U/L (12-78); ALBUMIN 3.7 G/DL (3.4-5.0); ALBUMIN/GLOBULIN RATIO 1.1 (1.1-1.5); ALKALINE PHOSPHATASE 56 IU/L (46-116); ANION GAP 9 (8-16); ASPARTATE AMINO TRANSFERASE 16 U/L (10-37); BILIRUBIN,TOTAL 0.8 MG/DL (0.1-1.0); BLOOD UREA NITROGEN 22 MG/DL (7-18); BUN/CREATININE RATIO 25.9 (10.0-20.0); CHLORIDE 104 MMOL/L (99-107); CREATININE 0.85 MG/DL (0.60-1.10); GLUCOSE 83 MG/DL (70-104); POTASSIUM 4.1 MMOL/L (3.5-5.1); SODIUM 140 MMOL/L (135-145); TOTAL CARBON DIOXIDE 27.1 MMOL/L (24-32); TOTAL PROTEIN 7.1 G/DL (6.4-8.2); eGFR > 90 ML/MIN
[2022-09-25] MEDS ORDERED: nitroGLYCERIN 1gm ointment UD TP ONE (16:25)
--- NOTE | 2022-09-25 17:21 | NUR ---
PER DR RENE COX TO APPLY NITRO PASTE ALTHOUGH PT HR 52. RN WILL CONT TO MONITOR.
[2022-09-25] MEDS ORDERED: normal saline 1000ml 1,000 ML IV ONE (17:30)
[2022-09-25] MEDS ORDERED: acetaminophen 325mg tablet PO PRN (18:05)
[2022-09-25] MEDS ORDERED: magnesium 2GM in 50ml NS 50 ML IV PRN (18:05)
[2022-09-25] MEDS ORDERED: magnesium 4gm in 100ml NS 100 ML IV PRN (18:05)
[2022-09-25] MEDS ORDERED: ondansetron/PF 4mg/2ml inj IV PRN (18:05)
[2022-09-25] MEDS ORDERED: potassium Cl 20 mEq SR tablet PO PRN ×2 (18:05)
[2022-09-25] MEDS ORDERED: magnesium hydroxide 30ml (MOM) UD suspension PO PRN (18:05)
[2022-09-25] MEDS ORDERED: magnesium Cl slow-release 64mg tablet PO PRN (18:05)
[2022-09-25] MEDS ORDERED: morphine 2 MG/ML inj. syringe IV PRN ×2 (18:05)
[2022-09-25] MEDS ORDERED: potassium Cl 40MEQ/1/2NS 520ml 520 ML IV PRN (18:05)
[2022-09-25] MEDS ORDERED: mag hydrox/Alum hydrox/simeth 30ml oral suspension PO PRN (18:05)
[2022-09-25] MEDS: normal saline 1000ml 1,000 ML IV SCH (19:18)
[2022-09-25] MEDS: docusate sod 100mg capsule PO SCH (20:00)
[2022-09-25] MEDS: K and/or MAG REPLACEMENT MC SCH (20:08)
[2022-09-25] MEDS: ticagrelor 90mg tablet PO SCH (20:13)
--- NOTE | 2022-09-25 20:19 | NUR ---
PT RECD TURKEY SANDWICH REQUESTED.
[2022-09-25] MEDS ORDERED: atorvastatin 20mg tablet PO SCH (21:00)
--- NOTE | 2022-09-25 22:22 | NUR ---
PT PLACED ON A HOSPITAL BED.
[2022-09-26] MEDS: normal saline 1000ml 1,000 ML IV SCH (04:52)
--- NOTE | 2022-09-26 07:01 | NUR ---
Patient in room ED 10. I have received report from Claudia HOFFMAN in ER and had the opportunity to ask questions will assume patient care when patient arrives on the floor.
[2022-09-26 07:49] VITALS: BP 95/56
[2022-09-26] MEDS: K and/or MAG REPLACEMENT MC SCH (08:00)
[2022-09-26] MEDS: docusate sod 100mg capsule PO SCH (08:00)
[2022-09-26] MEDS ORDERED: amLODIPine 5mg tablet PO SCH (08:00)
[2022-09-26] MEDS ORDERED: aspirin 81mg, enteric-coated 1 TAB TABLET.DR PO SCH ×2 (08:00)
[2022-09-26] MEDS ORDERED: lisinopril 20mg tablet PO SCH (08:00)
[2022-09-26] MEDS ORDERED: enoxaparin 40mg/0.4ml syringe SUBCUT SCH (08:00)
[2022-09-26 08:02] LABS: ALBUMIN 3.4 G/DL (3.4-5.0); ANION GAP 9 (8-16); BLOOD UREA NITROGEN 28 MG/DL (7-18); BUN/CREATININE RATIO 35.4 (10.0-20.0); CALCIUM 8.9 MG/DL (8.5-10.1); CHLORIDE 107 MMOL/L (99-107); CREATININE 0.79 MG/DL (0.60-1.10); GLUCOSE 104 MG/DL (70-104); MAGNESIUM 2.3 MG/DL (1.5-2.4); POTASSIUM 4.3 MMOL/L (3.5-5.1); SODIUM 141 MMOL/L (135-145); TOTAL CARBON DIOXIDE 24.8 MMOL/L (24-32); eGFR > 90 ML/MIN
[2022-09-26] MEDS: ticagrelor 90mg tablet PO SCH (09:00)
[2022-09-26 09:27] LABS: EOSINOPHILS # (AUTO) 0.2 X10'3 (0-0.9); HEMATOCRIT 43.5 % (42.0-52.0); HEMOGLOBIN 14.7 g/dl (14.0-17.9); MEAN PLATELET VOLUME 9.1 FL (7.4-10.4)
[2022-09-26 09:29] LABS: BASOPHILS # (AUTO) 0.1 X10'3 (0-0.2); BASOPHILS % (AUTO) 0.9 % (0-1); EOSINOPHILS % (AUTO) 3.1 % (0-6); LYMPHOCYTES # (AUTO) 1.6 X10'3 (1.1-4.8); LYMPHOCYTES % (AUTO) 21.6 % (21-51); MEAN CORPUSCULAR HEMOGLOBIN 31.2 PG (27.0-31.0); MEAN CORPUSCULAR HGB CONC 33.9 g/dL (33.0-36.5); MEAN CORPUSCULAR VOLUME 92.2 FL (78-98); MONOCYTES # (AUTO) 0.8 X10'3 (0-0.9); MONOCYTES % (AUTO) 10.5 % (2-12); NEUTROPHILS # (AUTO) 4.7 X10'3 (1.8-7.7); NEUTROPHILS % (AUTO) 63.9 % (42-75); PLATELET COUNT 229 X10'3 (140-440); RED BLOOD COUNT 4.72 X10'6 (4.70-6.10); WHITE BLOOD COUNT 7.3 X10'3 (4.5-11.0)
[2022-09-26 11:00] VITALS: BP 135/67
[2022-09-26] MEDS ORDERED: NITR0.4T51 SL (11:56)
--- NOTE | 2022-09-26 14:23 | NUR ---
Patient discharge records reviewed with patient and patient and verbalized understanding. Patient IV and Tele dc 'd for discharge cannula intact. Patient ambulated to lobby with . Patient states has all belongings.
== END 2022-09-26 14:21 | disposition home or self-care (01) | DRG 198 ==
LOC: ER 14:29 → ED HOLD 18:04 → PCU 3S 09-26 07:20
PROVIDERS: ADMIT Family Medicine; ATTEND Family Medicine
DX: R07.89 Other chest pain (principal); I25.10 Atherosclerotic heart disease of native coronary artery without angina pectoris; E78.00 Pure hypercholesterolemia, unspecified; F17.290 Nicotine dependence, other tobacco product, uncomplicated; I10 Essential (primary) hypertension; G47.30 Sleep apnea, unspecified; R00.1 Bradycardia, unspecified; G89.29 Other chronic pain; K21.9 Gastro-esophageal reflux disease without esophagitis; M54.9 Dorsalgia, unspecified; J44.9 Chronic obstructive pulmonary disease, unspecified; Z82.49 Family history of ischemic heart disease and other diseases of the circulatory system; I25.2 Old myocardial infarction; Z83.3 Family history of diabetes mellitus; Z95.5 Presence of coronary angioplasty implant and graft; Z80.8 Family history of malignant neoplasm of other organs or systems; Z79.899 Other long term (current) drug therapy; Z79.82 Long term (current) use of aspirin
CPT/HCPCS: 36415; 71045; 80048; 80053; 83735; 83880; 84484; 85025; 93005; 99285; G0378; J1650; J7030; J7040